=== PATIENT | male | born 1970 | race Caucasian/White ===

== ENCOUNTER 2020-05-10 16:03 | Observation (INO) ==
--- NOTE | 2020-05-10 16:58 | RAD ---
HISTORYSOB, COVID 19STUDYCHEST, 1 VIEWCOMPARISONNoneFINDINGSThe heart is mildly enlarged. The pulmonary vessels are slightly engorged ill-defined centrally. There are some hazy perihilar and bibasilar opacities. No effusion is seen.IMPRESSIONCardiomegaly and mild pulmonary edema with hazy perihilar and bibasilar opacities which could represent pulmonary edema and/or associated infiltrates from pneumonia. Recommend follow-upElectronically signed by: ZACH MCMANUS (May 10, 2020 16:57:34)
[2020-05-10 16:59] LABS: BASOPHILS % (AUTO) 0.3 % (0.2-1.0); EOSINOPHILS # (AUTO) 0.1 x10^3/uL (0.0-0.2); EOSINOPHILS % (AUTO) 1.4 % (0.9-2.9); HEMATOCRIT 34.8 % (42.0-54.0); LYMPHOCYTES # (AUTO) 0.9 X10^3/uL (1.3-2.9); LYMPHOCYTES % (AUTO) 22.4 % (21.0-51.0); MEAN CORPUSCULAR HEMOGLOBIN 26.8 pg (27.0-34.0); MEAN CORPUSCULAR HGB CONC 34.4 g/dL (33.0-35.0); MEAN PLATELET VOLUME 7.5 fL (7.4-11.0); MONOCYTES # (AUTO) 0.3 x10^3/uL (0.3-0.8); MONOCYTES % (AUTO) 7.6 % (0.0-13.0); NEUTROPHILS # (AUTO) 2.8 x10^3/uL (2.2-4.8); NEUTROPHILS % (AUTO) 68.3 % (42.0-75.0); PLATELET COUNT 200 X10^3/uL (150.0-450.0); RED BLOOD COUNT 4.47 X10^6/uL (4.7-6.0); RED CELL DISTRIBUTION WIDTH 13.9 % (11.6-16.5); WHITE BLOOD COUNT 4.1 X10^3/uL (3.6-10.0)
[2020-05-10] MEDS ORDERED: LEVAQUIN PREMIX IV 750 MG 750 MG/150 ML BAG IV SCH (17:00)
[2020-05-10 17:09] LABS: ABG HCO3 25.5 mmol/L (22-26)
[2020-05-10 17:10] LABS: ABG ALLEN TEST POS
[2020-05-10 17:13] LABS: ALANINE AMINOTRANSFERASE 49 Units/L (12-78); ALBUMIN 2.6 g/dL (3.4-5.0); ALKALINE PHOSPHATASE 62 Units/L (46-116); ASPARTATE AMINO TRANSFERASE 75 Units/L (15-37); BLOOD UREA NITROGEN 14 mg/dL (7-18); CALCIUM 8.5 mg/dL (8.5-10.1); CARBON DIOXIDE 25.6 mmol/L (21-32); CHLORIDE 105 mmol/L (98-107); COR CA(FOR HYPOALB) 9.6 mg/dL (8.5-10.1); COR NA(FOR HYPERGLY) 142 mmol/L (136-145); CREATININE 1.07 mg/dL (0.70-1.30); SODIUM 139 mmol/L (136-145); TOTAL PROTEIN 6.3 g/dL (6.4-8.2); eGFR NON BLACK RACES > 60 (>60)
[2020-05-10] MEDS ORDERED: ZOFRAN INJ 4 MG VIAL IVP ONE (17:42)
[2020-05-10] MEDS ORDERED: TORADOL 30 MG VIAL IVP PRN (17:46)
[2020-05-10] MEDS ORDERED: DUONEB 0.5 MG/3 MG (3 mL) NEB ONE (17:51)
[2020-05-10] MEDS ORDERED: HumuLIN R SUBCUT PRN (17:51)
[2020-05-10] MEDS ORDERED: NORMODYNE INJ 20 MG VIAL IV PRN (17:51)
[2020-05-10] MEDS ORDERED: TORADOL 30 MG VIAL ONE (17:55)
[2020-05-10] MEDS ORDERED: ZOFRAN INJ 4 MG VIAL ONE (17:55)
[2020-05-10] MEDS: DUONEB 0.5 MG/3 MG (3 mL) NEB SCH ×2 (18:20→21:40)
[2020-05-10] MEDS ORDERED: NS 1/2 1000 ML IV 1,000 ML IV ONE (18:42)
[2020-05-10] MEDS: NS 1/2 1000 ML IV 1,000 ML IV SCH (18:56)
[2020-05-10] MEDS: SOLU-Medrol 40 MG VIAL IVP SCH ×2 (18:56→21:33)
[2020-05-10] MEDS: VSL#3 PO SCH (18:56)
[2020-05-10] MEDS: ROBITUSSIN DM PO SCH ×2 (18:56→21:32)
[2020-05-10] MEDS: TESSALON PERLES PO SCH ×2 (18:57→21:33)
[2020-05-10] MEDS ORDERED: ZOFRAN INJ 4 MG VIAL 16 MG, ATIVAN INJ 2 MG VIAL 1 MG, DECADRON INJ 10 MG in NS 50 ML I... IV PRN (19:42)
[2020-05-10] MEDS ORDERED: SNACK - Diabetic Appropriate PO SCH (20:00)
[2020-05-10] MEDS: DILAUDID INJ IVP PRN (20:45)
[2020-05-10] MEDS ORDERED: PROTONIX INJ 40 MG VIAL IVP SCH (21:00)
[2020-05-10] MEDS ORDERED: TUSSIONEX PENNKINETIC SUSP PO SCH (21:00)
[2020-05-10] MEDS ORDERED: HumuLIN R ONE (21:08)
[2020-05-10] MEDS ORDERED: DILAUDID INJ ONE (21:08)
[2020-05-10] MEDS: HumuLIN R SUBCUT PRN (21:39)
[2020-05-10] MEDS: PULMICORT NEB TX 0.5 MG NEB SCH (21:40)
[2020-05-10] MEDS ORDERED: PHENERGAN INJ 25 MG IM PRN (21:41)
[2020-05-10] MEDS: PHENERGAN INJ 25 MG IM PRN (21:42)
[2020-05-10] MEDS ORDERED: TUSSIONEX PENNKINETIC SUSP PO PRN (21:55)
[2020-05-10] MEDS: REMDESIVIR (INVESTIGATIONAL DRUG GS-5734) 100 MG in NS 250 ML IV 250 ML IV SCH (21:56)
[2020-05-10] MEDS: AMBIEN PO PRN (22:00)
[2020-05-11 05:16] LABS: BASOPHILS % (AUTO) 0.2 % (0.2-1.0); EOSINOPHILS % (AUTO) 0.1 % (0.9-2.9); HEMATOCRIT 33.8 % (42.0-54.0); HEMOGLOBIN 11.7 g/dL (13.5-18.0); LYMPHOCYTES # (AUTO) 0.3 X10^3/uL (1.3-2.9); LYMPHOCYTES % (AUTO) 12.9 % (21.0-51.0); MEAN CORPUSCULAR HGB CONC 34.5 g/dL (33.0-35.0); MEAN CORPUSCULAR VOLUME 78.3 fL (80.0-100.0); MEAN PLATELET VOLUME 7.5 fL (7.4-11.0); MONOCYTES # (AUTO) 0.2 x10^3/uL (0.3-0.8); MONOCYTES % (AUTO) 5.8 % (0.0-13.0); NEUTROPHILS # (AUTO) 2.2 x10^3/uL (2.2-4.8); PLATELET COUNT 198 X10^3/uL (150.0-450.0); RED BLOOD COUNT 4.31 X10^6/uL (4.7-6.0); RED CELL DISTRIBUTION WIDTH 13.5 % (11.6-16.5); WHITE BLOOD COUNT 2.7 X10^3/uL (3.6-10.0)
[2020-05-11] MEDS ORDERED: NS 1/2 1000 ML IV 1,000 ML IV ONE ×2 (05:16→19:05)
[2020-05-11] MEDS: TORADOL 30 MG VIAL IVP PRN ×2 (05:30→14:35)
[2020-05-11 05:35] LABS: ALANINE AMINOTRANSFERASE 58 Units/L (12-78); ALBUMIN 2.4 g/dL (3.4-5.0); ALKALINE PHOSPHATASE 56 Units/L (46-116); ASPARTATE AMINO TRANSFERASE 89 Units/L (15-37); BLOOD UREA NITROGEN 14 mg/dL (7-18); CARBON DIOXIDE 22.3 mmol/L (21-32); CHLORIDE 103 mmol/L (98-107); COR CA(FOR HYPOALB) 9.3 mg/dL (8.5-10.1); COR NA(FOR HYPERGLY) 142 mmol/L (136-145); CREATININE 0.97 mg/dL (0.70-1.30); SODIUM 137 mmol/L (136-145); TOTAL PROTEIN 6.4 g/dL (6.4-8.2); eGFR NON BLACK RACES > 60 (>60)
[2020-05-11 05:48] LABS: ABG HCO3 25.2 mmol/L (22-26)
[2020-05-11 05:49] LABS: ABG ALLEN TEST POS
[2020-05-11] MEDS: SOLU-Medrol 40 MG VIAL IVP SCH ×3 (06:09→21:40)
[2020-05-11] MEDS: NS 1/2 1000 ML IV 1,000 ML IV SCH ×2 (06:10→20:34)
[2020-05-11] MEDS: TESSALON PERLES PO SCH ×3 (06:10→21:43)
--- NOTE | 2020-05-11 06:11 | RAD ---
HISTORYSOBSTUDYCHEST, 1 [id number]/27/2020FINDINGSThe trachea is midline. The cardiac silhouette is enlarged. Worsening central pulmonary vascular congestion and bilateral hazy pulmonary opacities/infiltrates. No pneumothorax. No large pleural effusion evident.. The bony thorax is stable.IMPRESSIONWorsening central pulmonary vascular congestion and bilateral pulmonary opacities, which may represent worsening pulmonary edema or infiltrates.Electronically signed by: Donya Montez (May 11, 2020 06:10:16)
[2020-05-11] MEDS: NORMODYNE INJ 20 MG VIAL IV PRN ×2 (06:16→06:37)
[2020-05-11] MEDS: HumuLIN R SUBCUT PRN ×4 (06:58→21:44)
[2020-05-11] MEDS: DUONEB 0.5 MG/3 MG (3 mL) NEB SCH ×4 (08:20→20:50)
[2020-05-11] MEDS: PULMICORT NEB TX 0.5 MG NEB SCH ×2 (08:20→20:50)
[2020-05-11] MEDS ORDERED: ACTEMRA 400 MG in NS 100 ML IV 80 ML IV SCH (09:00)
[2020-05-11] MEDS ORDERED: REMDESIVIR (INVESTIGATIONAL DRUG GS-5734) 100 MG in NS 250 ML IV 250 ML IV SCH (09:00)
[2020-05-11] MEDS: PROTONIX INJ 40 MG VIAL IVP SCH ×2 (10:00→21:40)
[2020-05-11] MEDS: ROBITUSSIN DM PO SCH ×4 (10:00→21:44)
[2020-05-11] MEDS: LEVAQUIN PREMIX IV 750 MG 750 MG/150 ML BAG IV SCH (10:00)
[2020-05-11] MEDS: VSL#3 PO SCH (10:01)
[2020-05-11] MEDS: LASIX IVP SCH ×2 (11:29→17:49)
[2020-05-11] MEDS: LOVENOX INJ 40 MG SYR SC SCH (11:29)
[2020-05-11] MEDS: NORVASC TAB 5 MG PO SCH (11:30)
[2020-05-11] MEDS: DIFLUCAN PO SCH (11:55)
--- NOTE | 2020-05-11 12:39 | DR.H&P ---
H&P - History & Physical for Day of: H&P Date: 05/10/20 - Chief Complaint Chief Complaint: COUGH, SOB, FEVER, NAUSEA, HEADACHE - History of Present Illness History of Present Illness: IS A 50 YEAR OLD PATIENT OF OURS WHO PRESENTED TO THE HOSPITAL A DIRECT ADMISSION DUE TO COMPLAINTS OF COUGH, SHORTNESS OF BREATH, NAUSEA, HEADACHE, AND FEVER. PATIENT REPORTS THAT HIS SYMPTOMS STARTED 8 DAYS AGO. HE WAS ADMITTED TO THE HOSPITAL IN [place], [place] ON 05/05/20. SYMPTOMS WORSENED AND PATIENT WAS NOT IMPROVING, SO HE SIGNED OUT AMA AND PRESENTED TO US. AUSCULTATION OF LUNG GERMAIN REVEALED SCATTERED WHEEZING THROUGHOUT. ON ARRIVAL TO THE HOSPITAL, VITALS WERE 99.2-83-17-91%-168/80. LABS WERE OBTAINED. ABNORMAL LAB VALUES INCLUDE THE FOLLOWING: RBC 4.47, HGB 12.0, HCT 34.8, GLUCOSE 206, FERRITIN 2091, AST 75, CRP 61.80, TOTAL PROTEIN 6.3, ALBUMIN 2.6. AN ABG WAS OBTAINED AND REVEALED: PH 7.470, PC02 35.0, P02 56.0, HC03 25.5, 02 SATURATION 91.0, FI02 21.0. BLOOD CULTURES WERE SET UP. A CHEST XRAY WAS OBTAINED AND REVEALED: Cardiomegaly and mild pulmonary edema with hazy perihilar and bibasilar opacities which could represent pulmonary edema and/or associated infiltrates from pneumonia. Recommend follow-up. HE WAS STARTED ON 1/2NS AT 75 ML/HR, LEVAQUIN 750MG IV DAILY, ACTEMRA 400MG IV X 1 DOSE, REMDESIVIR 100MG IV DAILY, DUONEBS QID, PULMICORT BID, PHENERGAN 25MG IM Q6H PRN, ZOFRAN COCKTAIL Q8H PRN, PROTONIX 40MG IV BID, SOLU-MEDROL 80MG IV Q8H, TESSALON PERLES 200MG PO TID, ROBITUSSIN DM 10ML PO QID, OTBS ACHS, HUMULIN R SLIDING SCALE, LOVENOX 40MG SC DAILY, DIFLUCAN 100MG PO DAILY, LASIX 40MG IV BID X 2 DOSES, DILAUDID 1MG IV Q4H PRN, TORADOL 30MG IV Q8H PRN. WE WILL REVIEW HIS HOME MEDICATIONS. OTHERWISE, WE PLAN TO FOLLOW UP WITH AM LABS AND CONTINUE TO MONITOR. - Past Medical History Past Medical History: Diabetes - Past Surgical History Surgical History: Ortho Surgery Additional Surgical History: SHOULDER SURGERY 2008, SINUS SURGERY 1983 - Family History Family Medical History: Diabetes Mellitus, Hypertension - Social History Does patient currently use any type of tobacco product: No Have you used tobacco products in the last 12 months: No Type of Tobacco Use: None Alcohol Use: None Drug Use: None - Medications Home Medications: morphine Allergy (Verified 05/10/20 18:29) - Review of Systems Constitutional: Fever, Weakness Eyes: No Symptoms Reported ENT: No Symptoms Reported Respiratory: See HPI, Cough, Shortness of Breath, SOB with Excertion, Wheezing Cardiovascular: No Symptoms Reported Gastrointestinal: No Symptoms Reported Genitourinary: No Symptoms Reported Musculoskeletal: No Symptoms Reported Skin: No Symptoms Reported Neurological: Weakness - Physical Exam Vital Signs: Temperature 98.4 F Pulse Rate [Left Brachial] 76 Pulse Rate 82 Respiratory Rate 24 Blood Pressure [Right Arm] 168/80 Blood Pressure 172/87 O2 Sat by Pulse Oximetry 93 Oriented: Normal Eyes: Normal Ear: Normal Nose: Normal Throat: Normal Respiratory: Wheezes Throughout Cardiovascular: Normal : Normal Auscultation: Bowel Sounds: Normal Palpation: Normal Tenderness: Normal Skin: Normal Musculoskeletal: Normal Psychiatric: Normal Mood Description: Calm Affect: Normal Speech Pattern: Clear - Assessment/Plan (1) COVID-19 Status: Acute Plan: ADMIT, 1/2NS AT 75 ML/HR, LEVAQUIN 750MG IV DAILY, ACTEMRA 400MG IV X 1 DOSE, REMDESIVIR 100MG IV DAILY, DUONEBS QID, PULMICORT BID, PHENERGAN 25MG IM Q6H PRN, ZOFRAN COCKTAIL Q8H PRN, PROTONIX 40MG IV BID, SOLU-MEDROL 80MG IV Q8H, TESSALON PERLES 200MG PO TID, ROBITUSSIN DM 10ML PO QID, OTBS ACHS, HUMULIN R SLIDING SCALE, LOVENOX 40MG SC DAILY, DIFLUCAN 100MG PO DAILY, LASIX 40MG IV BID X 2 DOSES, DILAUDID 1MG IV Q4H PRN, TORADOL 30MG IV Q8H PRN. (2) Pneumonia Qualifiers: Pneumonia type: due to unspecified organism Laterality: bilateral Lung location: lower lobe of lung Qualified Code(s): J18.9 - Pneumonia, unspecified organism Status: Acute - Allergies Allergies/Adverse Reactions: Allergies Allergy/AdvReac Type Severity Reaction Status Date / Time morphine Allergy Verified 05/10/20 18:29
[2020-05-11] MEDS: REMDESIVIR (INVESTIGATIONAL DRUG GS-5734) 100 MG in NS 250 ML IV 250 ML IV SCH (21:38)
[2020-05-11] MEDS: PHENERGAN INJ 25 MG IM PRN (21:41)
[2020-05-11] MEDS: DILAUDID INJ IVP PRN (21:43)
[2020-05-11] MEDS: SNACK - Diabetic Appropriate PO SCH (23:22)
[2020-05-11] MEDS: AMBIEN PO PRN (23:56)
[2020-05-12 04:51] LABS: BASOPHILS % (AUTO) 0.2 % (0.2-1.0); HEMATOCRIT 35.3 % (42.0-54.0); LYMPHOCYTES # (AUTO) 0.4 X10^3/uL (1.3-2.9); LYMPHOCYTES % (AUTO) 8.7 % (21.0-51.0); MEAN CORPUSCULAR HEMOGLOBIN 26.7 pg (27.0-34.0); MEAN CORPUSCULAR VOLUME 78.7 fL (80.0-100.0); MEAN PLATELET VOLUME 7.9 fL (7.4-11.0); MONOCYTES # (AUTO) 0.3 x10^3/uL (0.3-0.8); MONOCYTES % (AUTO) 7.2 % (0.0-13.0); NEUTROPHILS # (AUTO) 3.6 x10^3/uL (2.2-4.8); NEUTROPHILS % (AUTO) 83.9 % (42.0-75.0); PLATELET COUNT 227 X10^3/uL (150.0-450.0); RED BLOOD COUNT 4.49 X10^6/uL (4.7-6.0); RED CELL DISTRIBUTION WIDTH 13.5 % (11.6-16.5); WHITE BLOOD COUNT 4.3 X10^3/uL (3.6-10.0)
[2020-05-12 05:14] LABS: ALANINE AMINOTRANSFERASE 65 Units/L (12-78); ALBUMIN 2.6 g/dL (3.4-5.0); ALKALINE PHOSPHATASE 71 Units/L (46-116); ASPARTATE AMINO TRANSFERASE 50 Units/L (15-37); BLOOD UREA NITROGEN 23 mg/dL (7-18); CARBON DIOXIDE 26.1 mmol/L (21-32); CHLORIDE 99 mmol/L (98-107); COR CA(FOR HYPOALB) 9.1 mg/dL (8.5-10.1); COR NA(FOR HYPERGLY) 142 mmol/L (136-145); CREATININE 1.12 mg/dL (0.70-1.30); SODIUM 135 mmol/L (136-145); TOTAL PROTEIN 6.6 g/dL (6.4-8.2); eGFR NON BLACK RACES > 60 (>60)
[2020-05-12] MEDS: SOLU-Medrol 40 MG VIAL IVP SCH ×3 (06:27→21:21)
[2020-05-12] MEDS: TESSALON PERLES PO SCH ×3 (06:27→21:21)
--- NOTE | 2020-05-12 06:27 | RAD ---
HISTORYShortness of breathSTUDYChest AP [id number]/28/2020FINDINGSThe heart is upper limits normal in size. No definite congestive heart failure is present. Bilateral lower lobe parenchymal opacities remain but are improved when compared to the prior examination they may represent infiltrate, areas of subsegmental atelectasis or both. The lungs are hypoinflated. No pleural effusions are identified. Bony thorax is unremarkable.IMPRESSIONImproving bilateral lower lobe pulmonary opacities likely a combination of infiltrate and subsegmental atelectasisHypo inflationElectronically signed by: REI DONG (May 12, 2020 06:27:04)
[2020-05-12] MEDS: HumuLIN R SUBCUT PRN ×4 (06:40→21:26)
[2020-05-12] MEDS: LEVAQUIN PREMIX IV 750 MG 750 MG/150 ML BAG IV SCH (09:29)
[2020-05-12] MEDS: DIFLUCAN PO SCH (09:29)
[2020-05-12] MEDS: LOVENOX INJ 40 MG SYR SC SCH (09:30)
[2020-05-12] MEDS: NORVASC TAB 5 MG PO SCH (09:30)
[2020-05-12] MEDS: ROBITUSSIN DM PO SCH ×4 (09:31→21:23)
[2020-05-12] MEDS: PROTONIX INJ 40 MG VIAL IVP SCH ×2 (09:31→21:20)
[2020-05-12] MEDS: VSL#3 PO SCH (09:31)
[2020-05-12] MEDS: LEVEMIR SC SCH ×2 (09:37→21:32)
[2020-05-12] MEDS: PULMICORT NEB TX 0.5 MG NEB SCH ×2 (09:40→21:15)
[2020-05-12] MEDS: DUONEB 0.5 MG/3 MG (3 mL) NEB SCH ×5 (09:40→21:15)
[2020-05-12] MEDS ORDERED: NS 1/2 1000 ML IV 1,000 ML IV ONE ×2 (09:50→21:28)
[2020-05-12 10:07] VITALS: BMI 35.0
--- NOTE | 2020-05-12 10:42 | PCM.PROG ---
Progress Note - Progress Note for Day of Date of Exam: 05/12/20 - Subjective Subjective: IS BEING TREATED FOR PNEUMONIA DUE TO COVID-19. TODAY, HE IS ALERT AND ORIENTED, LYING IN BED ON MORNING ROUNDS. SHE CONTINUES WITH WEAKNESS, COUGH, SHORNESS OF BREATH, AND NAUSEA TODAY. ON EXAMINATION, HEART IS REGULAR IN RATE AND RHYTHM. BILATERAL LUNGS ARE NOTED WITH SCATTERED WHEEZING THROUGHOUT. ABDOMEN IS ROUND, SOFT, AND NON-TENDER WITH NORMAL BOWEL SOUNDS NOTED IN ALL QUADRANTS. HIS VITALS THIS MORNING ARE: 97.7-83-26-90%-158/77. LABS WERE OBTAINED. ABNORMAL LAB VALUES INCLUDE THE FOLLOWING: RBC 4.49, HGB 12.0, HCT 35.3, SODIUM 135, BUN 23, GLUCOSE 380, CALCIUM 8.0, FERRITIN 2114, AST 50, CRP 34.70, BNP 191, ALBUMIN 2.6. BLOOD CULTURES ARE PENDING. A CHEST XRAY WAS OBTA INED AND REVEALED: Improving bilateral lower lobe pulmonary opacities likely a combination of infiltrate and subsegmental atelectasis. Hypo inflation. HE IS CURRENTLY RECEIVIN/2NS AT 75 ML/HR, LEVAQUIN 750MG IV DAILY, ACTEMRA 400MG IV X 1 DOSE, REMDESIVIR 100MG IV DAILY, DUONEBS QID, PULMICORT BID, PHENERGAN 25MG IM Q6H PRN, ZOFRAN COCKTAIL Q8H PRN, PROTONIX 40MG IV BID, SOLU-MEDROL 80MG IV Q8H, TESSALON PERLES 200MG PO TID, ROBITUSSIN DM 10ML PO QID, OTBS ACHS, HUMULIN R SLIDING SCALE, LOVENOX 40MG SC DAILY, DIFLUCAN 100MG PO DAILY, LASIX 40MG IV BID X 2 DOSES, DILAUDID 1MG IV Q4H PRN, TORADOL 30MG IV Q8H PRN. WE WILL CONTINUE WITH CURRENT PLAN OF CARE TODAY AND ADD LEVEMIR 10UNITS SC BID DUE TO ELEVATED GLUCOSE LEVELS. OTHERWISE, WE WILL FOLLOW UP WITH AM LABS AND CONTINUE TO MONITOR. - Past Medical Family Social History Past Med/Fam/Surg Hx: No changes since H&P Allergies: Allergies morphine Allergy (Verified 05/10/20 18:29) - Review of Systems ROS: No change since H&P - Vital Signs and I&O's Vital Signs: Temperature 97.7 F Pulse Rate [Left Brachial] 76 Pulse Rate 83 Respiratory Rate 26 Blood Pressure [Right Arm] 168/80 Blood Pressure 158/77 O2 Sat by Pulse Oximetry 90 Intake and Output: Intake & Output 05/09/20 05/10/20 05/11/20 05/12/20 11:59 11:59 11:59 11:59 Intake Total 1400 / 1400 3089 / 3089 Output Total 300 / 300 5725 / 5725 Balance 1100 / 1100 -2636 / -2636 - Physical Exam Oriented: Normal Eyes: Normal Ear: Normal Nose: Normal Throat: Normal Respiratory: Diminished, Wheezes Cardiovascular: Normal : Normal Auscultation: Bowel Sounds: Normal Palpation: Normal Tenderness: Normal Skin: Normal Musculoskeletal: Normal Psychiatric: Normal Mood Description: Calm Affect: Normal Speech Pattern: Clear, Appropriate - Laboratory and Diagnostics Result Diagrams: 05/12/20 04:15 05/12/20 04:15 Labs: Laboratory WBC 4.3 X10^3/uL (3.6-10.0) 05/12/20 04:15 RBC 4.49 X10^6/uL (4.7-6.0) L 05/12/20 04:15 Hgb 12.0 g/dL (13.5-18.0) L 05/12/20 04:15 Hct 35.3 % (42.0-54.0) L 05/12/20 04:15 MCV 78.7 fL (80.0-100.0) L 05/12/20 04:15 MCH 26.7 pg (27.0-34.0) L 05/12/20 04:15 MCHC 34.0 g/dL (33.0-35.0) 05/12/20 04:15 RDW 13.5 % (11.6-16.5) 05/12/20 04:15 Plt Count 227 X10^3/uL (150.0-450.0) 05/12/20 04:15 MPV 7.9 fL (7.4-11.0) 05/12/20 04:15 Neut % (Auto) 83.9 % (42.0-75.0) H 05/12/20 04:15 Lymph % (Auto) 8.7 % (21.0-51.0) L 05/12/20 04:15 [place] % (Auto) 7.2 % (0.0-13.0) 05/12/20 04:15 Eos % (Auto) 0.0 % (0.9-2.9) L 05/12/20 04:15 Baso % (Auto) 0.2 % (0.2-1.0) 05/12/20 04:15 Neut # (Auto) 3.6 x10^3/uL (2.2-4.8) 05/12/20 04:15 Lymph # (Auto) 0.4 X10^3/uL (1.3-2.9) L 05/12/20 04:15 [place] # (Auto) 0.3 x10^3/uL (0.3-0.8) 05/12/20 04:15 Eos # (Auto) 0.0 x10^3/uL (0.0-0.2) 05/12/20 04:15 Baso # (Auto) 0.0 X10^3/uL (0.0-0.1) 05/12/20 04:15 Absolute Nucleated RBC 0.0 /100WBC 05/12/20 04:15 Sample Site Rrad 05/11/20 05:42 ABG pH 7.430 (7.35-7.45) 05/11/20 05:42 ABG pCO2 38.0 mmHg (35.0-45.0) 05/11/20 05:42 ABG pO2 63.0 mmHg (80.0-100.0) L 05/11/20 05:42 ABG HCO3 25.2 mmol/L (22-26) 05/11/20 05:42 ABG O2 Saturation 92.0 % (90-100) 05/11/20 05:42 ABG Base Excess 1.0 mmol/L (-2.0-2.0) 05/11/20 05:42 Harvey Test Pos 05/11/20 05:42 A-a Gradient 89.0 mmHg 05/11/20 05:42 FiO2 28.0 05/11/20 05:42 Blood Gas Comments Amando abg well-mtf 05/11/20 05:42 Sodium 135 mmol/L (136-145) L 05/12/20 04:15 Corrected Sodium 142 mmol/L (136-145) 05/12/20 04:15 Potassium 4.0 mmol/L (3.5-5.1) 05/12/20 04:15 Chloride 99 mmol/L (98-107) 05/12/20 04:15 Carbon Dioxide 26.1 mmol/L (21-32) 05/12/20 04:15 BUN 23 mg/dL (7-18) H 05/12/20 04:15 Creatinine 1.12 mg/dL (0.70-1.30) 05/12/20 04:15 Est GFR (MDRD) Af Amer > 60 (>60) 05/12/20 04:15 Est GFR (MDRD) Non-Af > 60 (>60) 05/12/20 04:15 Glucose 380 mg/dL (65-99) H 05/12/20 04:15 Calcium 8.0 mg/dL (8.5-10.1) L 05/12/20 04:15 Corrected Calcium 9.1 mg/dL (8.5-10.1) 05/12/20 04:15 Ferritin 2114 ng/mL (26-388) H 05/12/20 04:15 Total Bilirubin 0.50 mg/dL (0.2-1.0) 05/12/20 04:15 AST 50 Units/L (15-37) H 05/12/20 04:15 ALT 65 Units/L (12-78) 05/12/20 04:15 Alkaline Phosphatase 71 Units/L (46-116) 05/12/20 04:15 C-Reactive Protein 34.70 mg/L (0-3.0) H 05/12/20 04:15 B-Natriuretic Peptide 191 pg/mL (0-79) H 05/12/20 04:15 Total Protein 6.6 g/dL (6.4-8.2) 05/12/20 04:15 Albumin 2.6 g/dL (3.4-5.0) L 05/12/20 04:15 Globulin 4.0 g/dL (2.5-4.5) 05/12/20 04:15 Albumin/Globulin Ratio 0.7 Ratio (1.1-2.1) L 05/12/20 04:15 - Plan (1) COVID-19 Status: Acute Plan: 1/2NS AT 75 ML/HR, LEVAQUIN 750MG IV DAILY, ACTEMRA 400MG IV X 1 DOSE, REMDESIVIR 100MG IV DAILY, DUONEBS QID, PULMICORT BID, PHENERGAN 25MG IM Q6H PRN, ZOFRAN COCKTAIL Q8H PRN, PROTONIX 40MG IV BID, SOLU-MEDROL 80MG IV Q8H, T ESSALON PERLES 200MG PO TID, ROBITUSSIN DM 10ML PO QID, OTBS ACHS, HUMULIN R SLIDING SCALE, LOVENOX 40MG SC DAILY, DIFLUCAN 100MG PO DAILY, LASIX 40MG IV BID X 2 DOSES, DILAUDID 1MG IV Q4H PRN, TORADOL 30MG IV Q8H PRN. 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
[2020-05-12] MEDS: NS 1/2 1000 ML IV 1,000 ML IV SCH (11:35)
[2020-05-12] MEDS ORDERED: SNACK - Diabetic Appropriate PO SCH (20:00)
[2020-05-12] MEDS: DILAUDID INJ IVP PRN (20:45)
[2020-05-12] MEDS: SNACK - Diabetic Appropriate PO SCH (21:18)
[2020-05-12] MEDS: REMDESIVIR (INVESTIGATIONAL DRUG GS-5734) 100 MG in NS 250 ML IV 250 ML IV SCH (21:21)
[2020-05-12] MEDS: AMBIEN PO PRN (21:26)
[2020-05-12] MEDS: PHENERGAN INJ 25 MG IM PRN (21:27)
[2020-05-13] MEDS: NS 1/2 1000 ML IV 1,000 ML IV SCH ×4 (01:06→19:40)
[2020-05-13 05:09] LABS: BASOPHILS % (AUTO) 0.1 % (0.2-1.0); HEMATOCRIT 36.6 % (42.0-54.0); HEMOGLOBIN 12.7 g/dL (13.5-18.0); LYMPHOCYTES # (AUTO) 0.4 X10^3/uL (1.3-2.9); LYMPHOCYTES % (AUTO) 4.3 % (21.0-51.0); MEAN CORPUSCULAR HEMOGLOBIN 27.3 pg (27.0-34.0); MEAN CORPUSCULAR HGB CONC 34.7 g/dL (33.0-35.0); MEAN CORPUSCULAR VOLUME 78.6 fL (80.0-100.0); MEAN PLATELET VOLUME 7.9 fL (7.4-11.0); MONOCYTES # (AUTO) 0.4 x10^3/uL (0.3-0.8); MONOCYTES % (AUTO) 3.8 % (0.0-13.0); NEUTROPHILS # (AUTO) 8.6 x10^3/uL (2.2-4.8); NEUTROPHILS % (AUTO) 91.8 % (42.0-75.0); PLATELET COUNT 268 X10^3/uL (150.0-450.0); RED BLOOD COUNT 4.65 X10^6/uL (4.7-6.0); RED CELL DISTRIBUTION WIDTH 13.7 % (11.6-16.5); WHITE BLOOD COUNT 9.4 X10^3/uL (3.6-10.0)
[2020-05-13 05:26] LABS: ALANINE AMINOTRANSFERASE 65 Units/L (12-78); ALBUMIN 2.8 g/dL (3.4-5.0); ALKALINE PHOSPHATASE 70 Units/L (46-116); ASPARTATE AMINO TRANSFERASE 34 Units/L (15-37); BLOOD UREA NITROGEN 23 mg/dL (7-18); CALCIUM 8.1 mg/dL (8.5-10.1); CARBON DIOXIDE 25.6 mmol/L (21-32); CHLORIDE 101 mmol/L (98-107); COR CA(FOR HYPOALB) 9.1 mg/dL (8.5-10.1); COR NA(FOR HYPERGLY) 143 mmol/L (136-145); SODIUM 137 mmol/L (136-145); TOTAL PROTEIN 6.8 g/dL (6.4-8.2); eGFR NON BLACK RACES > 60 (>60)
[2020-05-13 05:40] LABS: ABG ALLEN TEST POS; ABG BASE EXCESS 4.5 mmol/L (-2.0-2.0); ABG HCO3 29.2 mmol/L (22-26)
[2020-05-13] MEDS: SOLU-Medrol 40 MG VIAL IVP SCH ×3 (05:41→21:10)
[2020-05-13] MEDS: TESSALON PERLES PO SCH ×3 (05:41→21:10)
[2020-05-13] MEDS: HumuLIN R SUBCUT PRN ×4 (05:43→20:44)
--- NOTE | 2020-05-13 06:05 | RAD ---
HISTORYSOBSTUDYCHEST, 1 [id number]/29/2020FINDINGSThe trachea is midline. The cardiac silhouette is stable accounting for difference in technique. Bilateral pulmonary opacities/infiltrates, improved compared to prior exam. No pleural effusion or pneumothorax.. The bony thorax is stable.IMPRESSIONImproved bilateral pulmonary opacities/infiltrates.Electronically signed by: Donya Montez (May 13, 2020 06:04:23)
[2020-05-13 06:34] LABS: PLATELET MORPHOLOGY COMMENT NORMAL (NORMAL)
[2020-05-13] MEDS: PULMICORT NEB TX 0.5 MG NEB SCH ×2 (08:45→20:15)
[2020-05-13] MEDS: DUONEB 0.5 MG/3 MG (3 mL) NEB SCH ×4 (08:45→20:15)
[2020-05-13] MEDS: DIFLUCAN PO SCH (09:54)
[2020-05-13] MEDS: LEVAQUIN PREMIX IV 750 MG 750 MG/150 ML BAG IV SCH (09:55)
[2020-05-13] MEDS: NORVASC TAB 5 MG PO SCH (09:55)
[2020-05-13] MEDS: ROBITUSSIN DM PO SCH ×4 (09:56→20:44)
[2020-05-13] MEDS: PROTONIX INJ 40 MG VIAL IVP SCH ×2 (09:56→20:44)
[2020-05-13] MEDS: LEVEMIR SC SCH ×2 (09:57→20:42)
[2020-05-13] MEDS: LOVENOX INJ 40 MG SYR SC SCH (09:58)
[2020-05-13] MEDS: VSL#3 PO SCH (09:58)
[2020-05-13] MEDS ORDERED: NS 1/2 1000 ML IV 1,000 ML IV ONE (17:40)
[2020-05-13] MEDS: SNACK - Diabetic Appropriate PO SCH (20:42)
[2020-05-13] MEDS: REMDESIVIR (INVESTIGATIONAL DRUG GS-5734) 100 MG in NS 250 ML IV 250 ML IV SCH (20:44)
[2020-05-13] MEDS: AMBIEN PO PRN (21:10)
[2020-05-13] MEDS: PHENERGAN INJ 25 MG IM PRN (21:10)
[2020-05-13] MEDS: DILAUDID INJ IVP PRN (21:11)
[2020-05-14 05:39] LABS: BASOPHILS % (AUTO) 0.2 % (0.2-1.0); HEMOGLOBIN 12.3 g/dL (13.5-18.0); LYMPHOCYTES # (AUTO) 0.4 X10^3/uL (1.3-2.9); LYMPHOCYTES % (AUTO) 4.8 % (21.0-51.0); MEAN CORPUSCULAR HEMOGLOBIN 27.1 pg (27.0-34.0); MEAN CORPUSCULAR HGB CONC 34.2 g/dL (33.0-35.0); MEAN CORPUSCULAR VOLUME 79.3 fL (80.0-100.0); MEAN PLATELET VOLUME 7.8 fL (7.4-11.0); MONOCYTES # (AUTO) 0.3 x10^3/uL (0.3-0.8); MONOCYTES % (AUTO) 3.1 % (0.0-13.0); NEUTROPHILS # (AUTO) 8.4 x10^3/uL (2.2-4.8); NEUTROPHILS % (AUTO) 91.9 % (42.0-75.0); PLATELET COUNT 243 X10^3/uL (150.0-450.0); RED BLOOD COUNT 4.54 X10^6/uL (4.7-6.0); RED CELL DISTRIBUTION WIDTH 13.5 % (11.6-16.5); WHITE BLOOD COUNT 9.1 X10^3/uL (3.6-10.0)
[2020-05-14] MEDS: SOLU-Medrol 40 MG VIAL IVP SCH (05:42)
[2020-05-14] MEDS: TESSALON PERLES PO SCH (05:42)
[2020-05-14] MEDS: NS 1/2 1000 ML IV 1,000 ML IV SCH (05:42)
[2020-05-14 05:55] LABS: ALANINE AMINOTRANSFERASE 52 Units/L (12-78); ALBUMIN 2.7 g/dL (3.4-5.0); ALKALINE PHOSPHATASE 66 Units/L (46-116); ASPARTATE AMINO TRANSFERASE 23 Units/L (15-37); BLOOD UREA NITROGEN 26 mg/dL (7-18); CALCIUM 7.6 mg/dL (8.5-10.1); CARBON DIOXIDE 25.5 mmol/L (21-32); CHLORIDE 100 mmol/L (98-107); COR CA(FOR HYPOALB) 8.6 mg/dL (8.5-10.1); COR NA(FOR HYPERGLY) 142 mmol/L (136-145); CREATININE 0.97 mg/dL (0.70-1.30); SODIUM 135 mmol/L (136-145); TOTAL PROTEIN 6.3 g/dL (6.4-8.2); eGFR NON BLACK RACES > 60 (>60)
[2020-05-14 05:56] LABS: BAND NEUTROPHILS % 4 % (0-10); PLATELET MORPHOLOGY COMMENT NORMAL (NORMAL)
--- NOTE | 2020-05-14 06:02 | RAD ---
HISTORYShortness of breathSTUDYChest AP [id number]/30/2020FINDINGSThe heart remains upper limits normal in size. No congestive heart failure is noted. The lungs are mildly hypoinflated. Bibasilar subsegmental atelectasis is present and not significantly changed. No definite residual infiltrates are identified. No pleural effusions are identified. Bony thorax is unremarkable.IMPRESSIONNo definite residual infiltratesBibasilar subsegmental atelectasisElectronically signed by: REI DONG (May 14, 2020 06:01:39)
[2020-05-14] MEDS: HumuLIN R SUBCUT PRN (06:14)
[2020-05-14] MEDS: LEVAQUIN PREMIX IV 750 MG 750 MG/150 ML BAG IV SCH (08:12)
[2020-05-14] MEDS: LEVEMIR SC SCH (08:13)
[2020-05-14] MEDS: PROTONIX INJ 40 MG VIAL IVP SCH (08:14)
[2020-05-14] MEDS: NORVASC TAB 5 MG PO SCH (08:14)
[2020-05-14] MEDS: ROBITUSSIN DM PO SCH (08:15)
[2020-05-14] MEDS: VSL#3 PO SCH (08:15)
[2020-05-14] MEDS: LOVENOX INJ 40 MG SYR SC SCH (08:15)
[2020-05-14] MEDS ORDERED: DIFLUCAN PO SCH (09:00)
[2020-05-14] MEDS ORDERED: DILAUDID INJ IVP PRN (09:00)
[2020-05-14] MEDS: DUONEB 0.5 MG/3 MG (3 mL) NEB SCH (09:05)
[2020-05-14] MEDS: PULMICORT NEB TX 0.5 MG NEB SCH (09:05)
[2020-05-14 12:16] VITALS: BP 145/78
== END 2020-05-14 11:50 | disposition home or self-care (01) ==
LOC: ICU
PROVIDERS: ADMIT Internal Medicine; ATTEND Internal Medicine
DX: J12.89 Other viral pneumonia; U07.1 COVID-19; E11.8 Type 2 diabetes mellitus with unspecified complications; I51.7 Cardiomegaly; R26.81 Unsteadiness on feet; R51 Headache
CPT/HCPCS: 36415; 36600; 71010; 71045; 80053; 81256; 82728; 82803; 82947; 83880; 85025; 86140; 87040; 94640; 94760; 96360; 96361; 96372; 96374; A4222; C9113; G0378; J1170; J1650; J1815; J1885; J1940; J1956; J2405; J2550; J2920; J3262; J3490; J7050; J7620; J7626